=== PATIENT | male | born 1955 | race Caucasian/White ===

== ENCOUNTER → 2019-04-26 | Outpatient (CLI) | payer OTHER ==
[~2019-04-26] MED LIST: REGADENOSON 0.4 MG/5 ML DISP.SYRIN. IV ONE
--- NOTE | 2019-04-27 16:12 | PCVCIMAG ---
APPROVED REPORT Study performed: 04/26/2019 08:00:07 EXAM: Comprehensive 2D, Doppler, and color-flow Echocardiogram Patient Location: Echo lab Status: routine BSA: 2.04 HR: 67 bpmBP: 148/82 mmHg Rhythm: NSR Other Information Study Quality: Adequate Risk Factors: Cardiac Risk Factors: HTN Indications Chest Pain elevated ca score 2D Dimensions IVSd: 11.07 (7-11mm) LVDd: 43.99 mm PWd: 11.35 (7-11mm)Ascending Ao: 35.78 (22-36mm) LVDs: 30.40 (25-40mm) Left Atrium: 37.11 (27-40mm) Aortic Root: 32.47 mm LV Single Plane 4CH: 59.50 % LV Single Plane 2CH: 58.48 % Biplane EF: 57.4 % Volumes Left Atrial Volume (Systole) Single Plane 4CH: 53.96 mLSingle Plane 2CH: 55.98 mL LA ESV Index: 27.00 mL/m2 Aortic Valve AoV Peak Florian.: 1.30 m/s AO Peak Gr.: 6.76 mmHgLVOT Max P.15 mmHg LVOT Max V: 1.02 m/s Mitral Valve E/A Ratio: 0.9 MV Decel. Time: 374.24 ms MV E Max Florian.: 0.50 m/s MV A Florian.: 0.58 m/s IVRT: 138.41 ms Pulmonary Valve PV Peak Florian.: 1.01 m/sPV Peak Gr.: 4.12 mmHg Pulmonary Vein P Vein S: 0.41 m/sP Vein A: 0.36 m/s P Vein D: 0.50 m/sP Vein A Dur.: 117.6 msec P Vein S/D Ratio: 0.82 Tricuspid Valve TR Peak Florian.: 2.42 m/s TR Peak Gr.: 23.38 mmHg TV Vmax: 0.46 m/s Left Ventricle The left ventricle is normal size. There is normal LV segmental wall motion. There is normal left ventricular wall thickness. Left ventricular systolic function is normal. The left ventricular ejection fraction is within the normal range. LVEF is 55-60%. Grade I - abnormal relaxation pattern. Right Ventricle The right ventricle is normal size. The right ventricular systolic function is normal. Atria The left atrium size is normal. The right atrium size is normal. Aortic Valve The aortic valve is normal in structure. No aortic regurgitation is present. There is no aortic valvular stenosis. Mitral Valve The mitral valve is normal in structure. Trace mitral regurgitation. No evidence of mitral valve stenosis. Tricuspid Valve The tricuspid valve is normal in structure. Trace tricuspid regurgitation with PAP of 30 mmHg. Pulmonic Valve The pulmonary valve is normal in structure. Trace pulmonic regurgitation. Great Vessels There is aortic root sclerosis/calcification. IVC is normal in size and collapses >50% with inspiration. Pericardium There is no pericardial effusion. There is no pleural effusion. <Conclusion> The left ventricle is normal size. LVEF is 55-60%. The aortic valve is normal in structure. The mitral valve is normal in structure. Trace mitral regurgitation. The tricuspid valve is normal in structure. Trace tricuspid regurgitation with PAP of 30 mmHg. The pulmonary valve is normal in structure. Trace pulmonic regurgitation. There is no pericardial effusion. There is no pleural effusion.
--- NOTE | 2019-04-28 10:31 | PCVCIMAG ---
APPROVED REPORT Imaging Protocol: Rest Tc-99m/Stress Tc-99m 1 day Study performed: 04/26/2019 09:28:02 Indication: Dyspnea, Chest pain, High Ca Score Patient Location: In-Patient Stress Nurse: Qian Wade RN MD Tech:Hellen ZazuetaJOEL carranzaMT Ht: 5 ft 10 in Wt: 202 lbs BSA: 2.10 m2 HR: 76 bpm BP: 151/79 mmHg BMI: 28.98 Rhythm: Sinus Rhythm Medical History Medical History: Hyperlipidemia, HTN Medications: Amlodipine, Atorvastatin, Hyzaar, Metformin Allergies: PCN Cardiac Risk Factors: Age Pretest Chest Pain Characteristics: No chest pain Exercise History: Physically active Meds Held (24 hrs): pt chose to hold all his meds Resting Data Rest SPECT myocardial perfusion imaging was performed in supine position 45 minutes following the intravenous injection of 9.9 mCi of Tc-99m Sestamibi. Time of rest injection: 0830 Administration Route: IV Administration Site: Right Hand Pharmacologic Stress Pharmacologic stress test was performed by injecting Regadenoson 0.4 mg IV push over 10-15 seconds immediately followed by the intravenous injection of 32.2 mCi of Tc-99m Sestamibi. Time of stress injection: 1000 Date: 04/26/2019 Administration Route: IV Administration Site: Right Hand Gated Stress SPECT was performed 45 minutes after stress injection. The images were gated to evaluate regional wall motion and calculate left ventricular ejection fraction. Stress Test Details Stress Test: Pharmacologic stress was paired with low level exercise. Reason for pharmacologic stress test: physical limitation, Jayro has knee issues.. HRMax Heart Rate (APMHR): 158 bpm Resting HR: 76 bpmTarget HR (85% APMHR): 134 bpm Max HR Achieved: 130 bpm % of APMHR: 82 Recovery HR: 85 bpm BP Resting BP: 151/79 mmHg Max BP: 164/78 mmHg Recovery BP: 150/77 mmHg ECG Resting ECG: Sinus Rhythm Stress ECG: Sinus Tachycardia Arrhythmia: None Recovery ECG: Sinus Rhythm Clinical Reason for Termination: Completed protocol Stress Symptoms: Abdominal discomfort, Anxiety Exercise duration: 4 min 00 sec Exercise capacity: 1.6 METs Symptoms resolved with caffeine. Stress ECG Conclusion 1. Adequate response intravenous Lexiscan 2. Inadequate heart rate for ECG diagnosis Study Data Post stress, the left ventricular ejection was 45%.. SSS: 0 SRS: 0 SDS: 0 TID = 1.11. Perfusion There is a medium area of moderately reduced uptake in the basal and mid segment of the anterolateral wall which is seen on the stress images and improves on the resting images. This area thickens and moves normally and is most consistent with ischemia. Wall Motion Mild septal hypokinesis noted Nuclear Conclusion ECG Findings: non-diagnostic Clinical Findings: negative for ischemia Nuclear Findings: positive for ischemia Exercise Capacity: not assessed Left Ventricular Function: normal 1. Intermediate risk study with evidence of inducible ischemia in the basilar anterolateral wall 2. Post stress left ventricular ejection fraction of 45% with mild septal hypokinesis <Conclusion> 1. Adequate response intravenous Lexiscan 2. Inadequate heart rate for ECG diagnosis
== END | disposition home or self-care (01) ==
LOC: PCVCIMAG 07:38
PROVIDERS: ATTEND Internal Medicine
DX: R93.1 Abnormal findings on diagnostic imaging of heart and coronary circulation (principal); I10 Essential (primary) hypertension; R06.00 Dyspnea, unspecified; Z88.0 Allergy status to penicillin
CPT/HCPCS: 78452; 93017; 93306; A9500; J2785